=== PATIENT | female | born 1980 | race Asian ===

== ENCOUNTER 2017-07-30 12:07 | Emergency (ER) | payer OTHER ==
[~2017-07-30] VITALS: Ht 177.8 cm; Wt 86.2 kg
[2017-07-30 12:12] VITALS: TEMP 98.3
[2017-07-30 13:45] VITALS: BP 128/68
== END 2017-07-30 13:51 | disposition home or self-care (01) ==
LOC: ED 12:07
DX: M54.2 Cervicalgia (principal); Y04.0XXA Assault by unarmed brawl or fight, initial encounter; S16.9XXA Unspecified injury of muscle, fascia and tendon at neck level, initial encounter
CPT/HCPCS: 96372; 99283; J1885; J2360

== ENCOUNTER 2017-10-04 11:51 | Emergency (ER) | payer OTHER ==
[~2017-10-04] VITALS: Ht 177.8 cm; Wt 89.8 kg
[2017-10-04 12:32] LABS: PLATELET COUNT 169 K/uL (152-353)
[2017-10-04 12:39] LABS: POTASSIUM 3.5 mmol/L (3.6-5.2)
[2017-10-04 14:00] VITALS: TEMP 99.5
[2017-10-04 15:00] VITALS: BP 128/86
== END 2017-10-04 15:13 | disposition home or self-care (01) ==
LOC: ED 11:51
PROVIDERS: Family Medicine
DX: K52.9 Noninfective gastroenteritis and colitis, unspecified (principal)
CPT/HCPCS: 36415; 80048; 85027; 87081; 87804; 87880; 96365; 96374; 99284